=== PATIENT | female | born 1965 | race Caucasian/White ===

== ENCOUNTER → 2018-05-19 | Day surgery (SDC) | payer OTHER ==
[~2018-05-19] MED LIST: PROPOFOL 500 MG/50 ML EMU IV ONE
[2018-05-19 10:59] VITALS: PULSE 83
[2018-05-19 11:29] VITALS: BP 141/72; RESP 16; TEMP 97; O2SAT 93
== END | disposition home or self-care (01) | DRG 951 ==
LOC: SURG 09:19
PROVIDERS: ATTEND Surgery
DX: Z12.11 Encounter for screening for malignant neoplasm of colon (principal); K57.32 Diverticulitis of large intestine without perforation or abscess without bleeding
CPT/HCPCS: J2704